=== PATIENT | female | born 1960 | race Caucasian/White ===

== ENCOUNTER 2017-02-16 11:34 | Inpatient (IN) | payer OTHER ==
[~2017-02-16] VITALS: Ht 167.6 cm; Wt 60.0 kg
[2017-02-16] MEDS ORDERED: LURA40 PO (11:51)
[2017-02-16] MEDS ORDERED: BUPR100 PO (11:51)
[2017-02-16] MEDS ORDERED: CARV6 PO (11:51)
[2017-02-16] MEDS ORDERED: ESCI10TA PO (11:51)
[2017-02-16] MEDS ORDERED: ONDA4 PO (11:51)
[2017-02-16] MEDS ORDERED: PANT40TA25 PO (11:51)
[2017-02-16] MEDS ORDERED: FURO20 PO (11:51)
[2017-02-16] MEDS ORDERED: HYD25 PO (11:51)
[2017-02-16] MEDS ORDERED: DOCU250C91 PO (11:51)
[2017-02-16] MEDS ORDERED: LEVO100 PO (11:51)
[2017-02-16] MEDS ORDERED: METO5TAB95 PO (11:51)
[2017-02-16] MEDS ORDERED: TRAZ-147 PO (11:51)
[2017-02-16] MEDS ORDERED: FOLI1 PO (11:51)
[2017-02-16 12:17] LABS: BASOPHILS % (AUTO) 0.7 % (0.0-2.0); EOSINOPHILS % (AUTO) 1.2 % (1.0-6.0); HEMATOCRIT 41.6 % (36-46); LYMPHOCYTES # (AUTO) 2.7 K/uL (1.0-4.8); LYMPHOCYTES % (AUTO) 35.3 % (22.0-44.0); MEAN CORPUSCULAR HGB CONC 31.2 G/dL (31.0-37.0); MEAN CORPUSCULAR VOLUME 83 fL (80-100); MONOCYTES # (AUTO) 0.6 K/uL (0.1-1.0); MONOCYTES % (AUTO) 8.1 % (2.0-9.0); NEUTROPHILS # (AUTO) 4.2 K/uL (1.8-7.7); NEUTROPHILS % (AUTO) 54.7 % (40.0-70.0); PLATELET COUNT (AUTO) 316 K/uL (150-450); RED CELL DISTRIBUTION WIDTH 20.1 % (11.5-14.5); WHITE BLOOD COUNT (AUTO) 7.7 K/uL (4.5-11.0)
[2017-02-16 12:25] LABS: ANION GAP 8 mmol/L (8-16); CALCIUM, TOTAL 9.2 mg/dL (8.8-10.5); CARBON DIOXIDE 28 mmol/L (22-29); CHLORIDE 100 mmol/L (98-107); CREATININE 0.81 mg/dL (0.60-1.30); GLOMERULAR FILTR. RATE CALC > 60 mL/min (>60); POTASSIUM 4.3 mmol/L (3.5-5.1); SODIUM SERUM 136 mmol/L (136-145); UREA NITROGEN, BLOOD 17 mg/dL (7-18)
[2017-02-16 12:28] LABS: GLUCOSE, URINE (UA) NEGATIVE (NEGATIVE); KETONES,URINE NEGATIVE (NEGATIVE); LEUKOCYTE ESTERASE ,URINE NEGATIVE (NEGATIVE); OCCULT BLOOD,URINE NEGATIVE (NEGATIVE); PROTEIN,URINE POS 1+ (NEGATIVE)
[2017-02-16 12:38] LABS: ALANINE AMINOTRANSFERASE 223 U/L (12-78); ALBUMIN 3.6 g/dL (3.4-5.0); ASPARTATE AMINOTRANSFERASE 232 U/L (15-37); BILIRUBIN,TOTAL 1.8 mg/dL (0.1-1.0); TOTAL PROTEIN, SERUM 8.3 g/dL (6.4-8.2)
[2017-02-16 12:44] LABS: RBC MORPHOLOGY COMMENT ABNORMAL RBC MORPH
[2017-02-16 12:46] LABS: B-TYPE NATRIURETIC PEPTIDE 868 pg/mL (0-100)
[2017-02-16 12:47] LABS: ADD UA MICROSCOPIC YES; APPEARANCE,URINE CLEAR (CLEAR)
[2017-02-16 12:48] LABS: RBC,URINE 0-2 /HPF (0-2); SQUAMOUS EPITHELIAL CELL,UR Few /LPF (None Seen); WBC,URINE 0-2 /HPF (0-5)
[2017-02-16] MEDS ORDERED: IOVERSOL 350 MG/ML 150 ML VIAL ONE (13:45)
[2017-02-16] MEDS ORDERED: SODIUM CHLORIDE 0.9% 100 ML ONE (13:46)
[2017-02-16] MEDS ORDERED: MORPHINE SULFATE 2 MG/ML SYRINGE IVP ONE (16:00)
[2017-02-16] MEDS ORDERED: 0.9% SODIUM CHLORIDE 10 ML SYRINGE IVP PRN (17:00)
[2017-02-16] MEDS ORDERED: ONDANSETRON HCL 4 MG/2 ML VIAL IVP PRN (17:00)
[2017-02-16] MEDS ORDERED: ACETAMINOPHEN 325 MG TABLET PO PRN (17:00)
[2017-02-16 18:36] VITALS: BP 111/84
[2017-02-16 19:47] VITALS: BP 115/82
[2017-02-16 21:59] VITALS: BP 115/84
[2017-02-16 23:50] VITALS: BP 107/74
[2017-02-17] VITALS (8 sets, daily range): BP systolic 105–125; BP diastolic 76–91
[2017-02-17] MEDS ORDERED: KETOROLAC TROMETHAMINE 30 MG/ML VIAL IVP PRN
[2017-02-17] MEDS ORDERED: KETOROLAC TROMETHAMINE 30 MG/ML VIAL IVP SCH
[2017-02-17] MEDS ORDERED: IPRATROPIUM BROMIDE 0.5 MG/2.5 ML NEB SOLUTION NEB PRN
[2017-02-17] MEDS ORDERED: MAGNESIUM HYDROXIDE SUSPENSION 30 ML UDCUP PO PRN
[2017-02-17] MEDS ORDERED: ACETAMINOPHEN 325 MG TABLET PO PRN
[2017-02-17] MEDS ORDERED: ONDANSETRON HCL 4 MG TABLET PO PRN
[2017-02-17] MEDS ORDERED: ZOLPIDEM TARTRATE 10 MG TABLET PO PRN
[2017-02-17] MEDS: NITROGLYCERIN 2% (1 GM=INCH) PACKET TP SCH ×5 (00:20→23:50)
[2017-02-17] MEDS: MORPHINE SULFATE 2 MG/ML SYRINGE IVP PRN ×2 (00:49→09:08)
[2017-02-17] MEDS: METOCLOPRAMIDE HCL 5 MG TABLET PO SCH ×4 (06:04→20:28)
[2017-02-17] MEDS: ONDANSETRON HCL 4 MG/2 ML VIAL IVP PRN (06:07)
[2017-02-17 07:51] LABS: CHOL/HDL RATIO 3.4 (3.9-5.7)
[2017-02-17] MEDS: BuPROPion HCL 150 MG SR TABLET PO SCH ×2 (08:55→20:28)
[2017-02-17] MEDS: PANTOPRAZOLE SODIUM 40 MG DR TABLET PO SCH (08:55)
[2017-02-17] MEDS: ESCITALOPRAM OXALATE 10 MG TABLET PO SCH (08:55)
[2017-02-17] MEDS: HydrOXYzine HCL 25 MG TABLET PO SCH ×3 (08:56→20:28)
[2017-02-17] MEDS: FOLIC ACID 1 MG TABLET PO SCH ×2 (08:56→20:28)
[2017-02-17] MEDS: LEVOTHYROXINE SODIUM 100 MCG TABLET PO SCH (08:56)
[2017-02-17] MEDS: CARVEDILOL 6.25 MG TABLET PO SCH ×2 (08:56→20:28)
[2017-02-17] MEDS: DOCUSATE SODIUM 250 MG CAPSULE PO SCH (08:57)
[2017-02-17] MEDS: TraZODone HCL 150 MG TABLET PO SCH (08:58)
[2017-02-17] MEDS ORDERED: PANTOPRAZOLE SODIUM 40 MG/VIAL IVP SCH (09:00)
[2017-02-17] MEDS ORDERED: DOCUSATE SODIUM 100 MG CAPSULE PO SCH (09:00)
[2017-02-17] MEDS ORDERED: FUROSEMIDE 20 MG TABLET PO SCH (09:00)
[2017-02-17] MEDS ORDERED: TRAZ150 PO (10:42)
[2017-02-17] MEDS ORDERED: BUPR150SR PO (10:42)
[2017-02-17] MEDS: NICOTINE 21 MG/24 HOUR PATCH TD SCH (15:44)
[2017-02-17] MEDS: HYDROCODONE/ACETAMINOPHEN 5-325 MG TABLET PO PRN (19:07)
[2017-02-17] MEDS: LURASIDONE HCL 40 MG TABLET PO SCH (20:28)
[2017-02-17] MEDS: FUROSEMIDE 40 MG/4 ML VIAL IVP SCH (21:32)
[2017-02-18 05:00] VITALS: BP 106/75
[2017-02-18] MEDS: NITROGLYCERIN 2% (1 GM=INCH) PACKET TP SCH ×3 (05:18→18:00)
[2017-02-18] MEDS: METOCLOPRAMIDE HCL 5 MG TABLET PO SCH ×4 (06:00→20:54)
[2017-02-18 06:46] LABS: BASOPHILS # (AUTO) 0.07 K/uL (0.00-0.20); BASOPHILS % (AUTO) 1.1 % (0.0-2.0); EOSINOPHILS # (AUTO) 0.08 K/uL (0.00-0.70); EOSINOPHILS % (AUTO) 1.26 % (1.0-6.0); HEMATOCRIT 35.1 % (36-46); HEMOGLOBIN 11.3 g/dL (12.0-16.0); LYMPHOCYTES # (AUTO) 2.5 K/uL (1.0-4.8); LYMPHOCYTES % (AUTO) 41.8 % (22.0-44.0); MEAN CORPUSCULAR HEMOGLOBIN 26.4 pg (26.0-34.0); MEAN CORPUSCULAR VOLUME 82 fL (80-100); MONOCYTES # (AUTO) 0.6 K/uL (0.1-1.0); MONOCYTES % (AUTO) 10.1 % (2.0-9.0); NEUTROPHILS # (AUTO) 2.8 K/uL (1.8-7.7); NEUTROPHILS % (AUTO) 45.7 % (40.0-70.0); PLATELET COUNT (AUTO) 252 K/uL (150-450); RED BLOOD CELL COUNT(AUTO) 4.26 MIL/uL (4.00-5.20); RED CELL DISTRIBUTION WIDTH 19.6 % (11.5-14.5); WHITE BLOOD COUNT (AUTO) 6.1 K/uL (4.5-11.0)
[2017-02-18 07:05] LABS: CALCIUM, TOTAL 8.3 mg/dL (8.8-10.5); CREATININE 1.03 mg/dL (0.60-1.30); MAGNESIUM 1.6 mg/dL (1.80-2.40); POTASSIUM 4.1 mmol/L (3.5-5.1)
[2017-02-18 07:20] VITALS: BP 107/79
[2017-02-18] MEDS: FUROSEMIDE 40 MG/4 ML VIAL IVP SCH (08:27)
[2017-02-18] MEDS: DOCUSATE SODIUM 250 MG CAPSULE PO SCH (08:28)
[2017-02-18] MEDS: PANTOPRAZOLE SODIUM 40 MG DR TABLET PO SCH (08:28)
[2017-02-18] MEDS: FOLIC ACID 1 MG TABLET PO SCH ×2 (08:28→20:54)
[2017-02-18] MEDS: CARVEDILOL 6.25 MG TABLET PO SCH ×2 (08:28→20:54)
[2017-02-18] MEDS: HydrOXYzine HCL 25 MG TABLET PO SCH ×3 (08:28→20:54)
[2017-02-18] MEDS: LEVOTHYROXINE SODIUM 100 MCG TABLET PO SCH (08:29)
[2017-02-18] MEDS: BuPROPion HCL 150 MG SR TABLET PO SCH ×2 (08:29→20:54)
[2017-02-18] MEDS: NICOTINE 21 MG/24 HOUR PATCH TD SCH (08:29)
[2017-02-18] MEDS: ESCITALOPRAM OXALATE 10 MG TABLET PO SCH (08:29)
[2017-02-18] MEDS: HYDROCODONE/ACETAMINOPHEN 5-325 MG TABLET PO PRN ×2 (08:30→22:33)
[2017-02-18] MEDS: TraZODone HCL 150 MG TABLET PO SCH ×2 (09:00→20:54)
[2017-02-18 09:23] LABS: RBC MORPHOLOGY COMMENT ABNORMAL RBC MORPH
[2017-02-18] MEDS ORDERED: MAGNESIUM SULFATE 3 GM in DEXTROSE 5%-WATER 100 ML IV ONE (10:45)
[2017-02-18 10:56] VITALS: BP 108/79
[2017-02-18] MEDS ORDERED: SODIUM CHLORIDE 0.9% 250 ML IV ONE (12:05)
[2017-02-18 15:05] VITALS: BP 96/75
[2017-02-18 19:18] VITALS: BP 106/80
[2017-02-18] MEDS: LURASIDONE HCL 40 MG TABLET PO SCH (20:53)
[2017-02-18 23:36] VITALS: BP 102/77
[2017-02-19] VITALS (8 sets, daily range): BP systolic 96–110; BP diastolic 68–78
[2017-02-19] MEDS: NITROGLYCERIN 2% (1 GM=INCH) PACKET TP SCH ×4 (00:42→18:22)
[2017-02-19 05:39] LABS: ANION GAP 6 mmol/L (8-16); CARBON DIOXIDE 26 mmol/L (22-29); CHLORIDE 100 mmol/L (98-107); CREATININE 0.88 mg/dL (0.60-1.30); GLOMERULAR FILTR. RATE CALC > 60 mL/min (>60); POTASSIUM 3.9 mmol/L (3.5-5.1); SODIUM SERUM 132 mmol/L (136-145); UREA NITROGEN, BLOOD 21 mg/dL (7-18)
[2017-02-19 05:49] LABS: B-TYPE NATRIURETIC PEPTIDE 802 pg/mL (0-100)
[2017-02-19] MEDS: METOCLOPRAMIDE HCL 5 MG TABLET PO SCH ×4 (06:49→22:23)
[2017-02-19] MEDS: ONDANSETRON HCL 4 MG/2 ML VIAL IVP PRN (08:59)
[2017-02-19] MEDS: PANTOPRAZOLE SODIUM 40 MG DR TABLET PO SCH (09:02)
[2017-02-19] MEDS: FOLIC ACID 1 MG TABLET PO SCH ×2 (09:02→22:24)
[2017-02-19] MEDS: NICOTINE 21 MG/24 HOUR PATCH TD SCH (09:02)
[2017-02-19] MEDS: FUROSEMIDE 40 MG TABLET PO SCH (09:02)
[2017-02-19] MEDS: DOCUSATE SODIUM 250 MG CAPSULE PO SCH (09:02)
[2017-02-19] MEDS: CARVEDILOL 6.25 MG TABLET PO SCH ×2 (09:02→21:00)
[2017-02-19] MEDS: ESCITALOPRAM OXALATE 10 MG TABLET PO SCH (09:03)
[2017-02-19] MEDS: HydrOXYzine HCL 25 MG TABLET PO SCH ×3 (09:03→22:24)
[2017-02-19] MEDS: LEVOTHYROXINE SODIUM 100 MCG TABLET PO SCH (09:03)
[2017-02-19] MEDS: BuPROPion HCL 150 MG SR TABLET PO SCH ×2 (09:04→22:24)
[2017-02-19] MEDS: HYDROCODONE/ACETAMINOPHEN 5-325 MG TABLET PO PRN ×2 (09:40→22:24)
[2017-02-19] MEDS: LISINOPRIL 5 MG TABLET PO SCH (18:22)
[2017-02-19] MEDS: TraZODone HCL 150 MG TABLET PO SCH (22:23)
[2017-02-19] MEDS: LURASIDONE HCL 40 MG TABLET PO SCH (22:24)
[2017-02-20 04:29] VITALS: BP 90/44
[2017-02-20] MEDS: NITROGLYCERIN 2% (1 GM=INCH) PACKET TP SCH ×3 (06:00→12:00)
[2017-02-20 06:15] LABS: BASOPHILS % (AUTO) 0.7 % (0.0-2.0); EOSINOPHILS % (AUTO) 1.4 % (1.0-6.0); HEMATOCRIT 34.2 % (36-46); HEMOGLOBIN 10.8 g/dL (12.0-16.0); LYMPHOCYTES # (AUTO) 2.1 K/uL (1.0-4.8); LYMPHOCYTES % (AUTO) 35.9 % (22.0-44.0); MEAN CORPUSCULAR HGB CONC 31.5 G/dL (31.0-37.0); MEAN CORPUSCULAR VOLUME 83 fL (80-100); MONOCYTES # (AUTO) 0.6 K/uL (0.1-1.0); MONOCYTES % (AUTO) 9.9 % (2.0-9.0); NEUTROPHILS # (AUTO) 3.1 K/uL (1.8-7.7); NEUTROPHILS % (AUTO) 52.1 % (40.0-70.0); PLATELET COUNT (AUTO) 258 K/uL (150-450); RED BLOOD CELL COUNT(AUTO) 4.14 MIL/uL (4.00-5.20); RED CELL DISTRIBUTION WIDTH 19.4 % (11.5-14.5); WHITE BLOOD COUNT (AUTO) 5.9 K/uL (4.5-11.0)
[2017-02-20] MEDS: METOCLOPRAMIDE HCL 5 MG TABLET PO SCH ×2 (06:19→11:30)
[2017-02-20 06:28] LABS: ALBUMIN 2.6 g/dL (3.4-5.0); BILIRUBIN,TOTAL 0.9 mg/dL (0.1-1.0); CALCIUM, TOTAL 8.2 mg/dL (8.8-10.5); CREATININE 0.97 mg/dL (0.60-1.30); POTASSIUM 4.1 mmol/L (3.5-5.1); TOTAL PROTEIN, SERUM 6.3 g/dL (6.4-8.2)
[2017-02-20 07:55] VITALS: BP 93/62
[2017-02-20] MEDS: FUROSEMIDE 40 MG TABLET PO SCH (10:35)
[2017-02-20] MEDS: FOLIC ACID 1 MG TABLET PO SCH (10:35)
[2017-02-20] MEDS: LISINOPRIL 5 MG TABLET PO SCH (10:35)
[2017-02-20] MEDS: DOCUSATE SODIUM 250 MG CAPSULE PO SCH (10:35)
[2017-02-20] MEDS: CARVEDILOL 6.25 MG TABLET PO SCH (10:35)
[2017-02-20] MEDS: ESCITALOPRAM OXALATE 10 MG TABLET PO SCH (10:36)
[2017-02-20] MEDS: LEVOTHYROXINE SODIUM 100 MCG TABLET PO SCH (10:36)
[2017-02-20] MEDS: PANTOPRAZOLE SODIUM 40 MG DR TABLET PO SCH (10:36)
[2017-02-20] MEDS: HydrOXYzine HCL 25 MG TABLET PO SCH (10:36)
[2017-02-20] MEDS: BuPROPion HCL 150 MG SR TABLET PO SCH (10:38)
[2017-02-20] MEDS: NICOTINE 21 MG/24 HOUR PATCH TD SCH (10:41)
[2017-02-20] MEDS: ONDANSETRON HCL 4 MG/2 ML VIAL IVP PRN (11:06)
[2017-02-20 11:22] VITALS: BP 92/62
[2017-02-20 15:35] VITALS: BP 111/78
== END 2017-02-20 16:25 | disposition home or self-care (01) | DRG 243 ==
LOC: EMS 11:36 → 5S 17:25
PROVIDERS: ADMIT Hospitalist; ATTEND Hospitalist
DX: K21.9 Gastro-esophageal reflux disease without esophagitis (principal); I50.23 Acute on chronic systolic (congestive) heart failure; E44.0 Moderate protein-calorie malnutrition; I42.9 Cardiomyopathy, unspecified; I11.0 Hypertensive heart disease with heart failure; I25.2 Old myocardial infarction; J44.9 Chronic obstructive pulmonary disease, unspecified; K02.9 Dental caries, unspecified; E03.9 Hypothyroidism, unspecified; B19.20 Unspecified viral hepatitis C without hepatic coma; F32.9 Major depressive disorder, single episode, unspecified; Z87.891 Personal history of nicotine dependence; Z79.899 Other long term (current) drug therapy; Z90.49 Acquired absence of other specified parts of digestive tract; Z91.19 Patient's noncompliance with other medical treatment and regimen; Z88.1 Allergy status to other antibiotic agents; Z88.3 Allergy status to other anti-infective agents; Z88.8 Allergy status to other drugs, medicaments and biological substances; Z68.21 Body mass index [BMI] 21.0-21.9, adult
CPT/HCPCS: 71275; 76700; 83735; 93005; 93306; 94640; 96374; 99285; J1940; J2270; J2405; J3475; J7050; J7060

== ENCOUNTER 2019-03-13 13:25 | Day surgery (SDC) | payer OTHER ==
[~2019-03-13] VITALS: Ht 154.9 cm; Wt 71.4 kg
[~2019-03-13 13:25] MED LIST: BUPR150SR PO; CARV6 PO; DOCU250C91 PO; ESCI10TA PO; FOLI1 PO; FURO20 PO; HYD25 PO; LEVO100 PO; LURA40 PO; METO5TAB95 PO; ONDA4 PO; PANT40TA25 PO; SODIUM CHLORIDE 0.9% 1,000 ML IV ONE; TRAZ150 PO
[2019-03-13] MEDS ORDERED: PROPOFOL 1% 20 ML VIAL IVP ONE (13:26)
[2019-03-13] MEDS ORDERED: GABA-531 PO (14:44)
[2019-03-13] MEDS ORDERED: DOCU250C90 PO (14:44)
[2019-03-13] MEDS ORDERED: NITR0.4T52 SL (14:44)
[2019-03-13] MEDS ORDERED: ALBU8.5H8 IH (14:44)
[2019-03-13] MEDS ORDERED: DIPH50 PO (14:44)
[2019-03-13] MEDS ORDERED: SPIR50 PO (14:44)
[2019-03-13] MEDS ORDERED: SERT50TA12 PO (14:44)
[2019-03-13] MEDS ORDERED: LISI-662 PO (14:44)
== END 2019-03-13 16:35 | disposition home or self-care (01) ==
LOC: SURGERY 13:25
PROVIDERS: ATTEND Student in an Organized Health Care Education/Training Program
DX: B18.2 Chronic viral hepatitis C (principal); K44.9 Diaphragmatic hernia without obstruction or gangrene; K31.89 Other diseases of stomach and duodenum; I25.10 Atherosclerotic heart disease of native coronary artery without angina pectoris; I50.9 Heart failure, unspecified; J44.9 Chronic obstructive pulmonary disease, unspecified; F41.9 Anxiety disorder, unspecified; I42.9 Cardiomyopathy, unspecified; G89.29 Other chronic pain; F32.9 Major depressive disorder, single episode, unspecified; E03.9 Hypothyroidism, unspecified; Z98.890 Other specified postprocedural states; Z79.899 Other long term (current) drug therapy; Z88.8 Allergy status to other drugs, medicaments and biological substances; Z88.1 Allergy status to other antibiotic agents; F17.200 Nicotine dependence, unspecified, uncomplicated; Z90.49 Acquired absence of other specified parts of digestive tract; Z95.810 Presence of automatic (implantable) cardiac defibrillator; Z87.19 Personal history of other diseases of the digestive system
CPT/HCPCS: 43239; 88305; 88312; 88313; 93005; C1769; J2704